=== PATIENT | female | born 1985 | race Caucasian/White ===

== ENCOUNTER 2017-03-28 17:03 | Emergency (ER) | payer MEDICAID ==
[~2017-03-28] VITALS: Wt 89.5 kg
[~2017-03-28 17:03] MED LIST: BACTDS PO; CEPH500C PO; IBUP800T25 PO; MAG-19 PO; OMEP20CA16 PO; ONDA4TAB35 PO
[2017-03-28] MEDS ORDERED: HYDROCODONE/APAP (5/325) TAB PO STA (18:10)
[2017-03-28] MEDS ORDERED: ONDANSETRON (ODT) 4 MG TAB ODT STA (18:10)
--- NOTE | 2017-03-28 19:08 | RADRPT ---
PROCEDURE: US Abdomen. CLINICAL INDICATION: Abdominal pain. TECHNIQUE: Multiple real-time images were acquired of the patient's right upper quadrant utilizing a high resolution transducer. The images were reviewed on a high-resolution PACS workstation. COMPARISON: 06/09/2015 FINDINGS: The liver demonstrates normal echogenicity and size and no focal lesions are seen. The liver measure s 16.2 cm in size. A gallstone is seen. There is no pericholecystic fluid. The gallbladder wall haroldo ures 1.8 mm in size. No intrahepatic biliary dilatation is seen. The common bile duct measures 1.9 mm in maximal dimension. The pancreas is not well visualized secondary to overlying bowel gas. No free fluid is identified. The right kidney is of normal size, and demonstrate normal echogenicity and morphology. The right k idney measures 9.2 cm. A 3 mm echogenic structure in the lower pole of the right kidney is seen whic h may represent a nonobstructing renal calculus. There are is no dilatation of the right collecting system. There are no perinephric fluid collections. There are no areas of increased echogenicity to suggest nephrolithiasis. IMPRESSION: 1. Cholelithiasis. 2. 3 mm echogenic structure in the right kidney which may represent a nonobstructive renal calculus . RPTAT: HPNM Physician Jamarcus Date Time Electronically viewed and signed by Physician Jamarcus on 03/28/2017 19:08 /
[2017-03-28] MEDS ORDERED: IBUP-1542 PO (19:25)
[2017-03-28] MEDS ORDERED: NITR-58 PO (19:25)
[2017-03-28] MEDS ORDERED: ONDA4TAB14 PO (19:26)
--- NOTE | 2017-03-28 22:23 | ERD ---
ER Documentation Chief Complaint Chief Complaint L. SIDED ABD PAIN W N/V/D HPI 1-year-old female presenting to the emergency department complaining of moderate epigastric and right upper quadrant abdominal pain for the past month. Patient states that she started having nausea less nonbloody vomiting diarrhea in the past 2 days. Patient denies any fevers. ROS All systems reviewed and are negative except as per history of present illness. Medications Home Meds Active Scripts Ondansetron (Ondansetron Odt) 4 Mg Tab.rapdis, 4 MG PO Q6H Y for NAUSEA AND/OR VOMITING, #20 TAB Prov:LOVE GARCIA PA-C 03/28/17 Ibuprofen* (Ibuprofen*) 600 Mg Tablet, 600 MG PO Q6H Y for PAIN, #30 TAB Prov:LOVE GARCIA PA-C 03/28/17 Nitrofurantoin Monohyd Macrocr* (Macrobid*) 100 Mg Capsr, 100 MG PO BID for 5 Days, CAP Prov:LOVE GARCIA PA-C 03/28/17 Ondansetron Hcl* (Zofran* ODT) 4 mg -ODT Tab.disper, 4 MG PO Q8 Y for NAUSEA AND /OR VOMITING, #30 TAB Prov:MARIAJOSE LAW NP 06/09/15 Omeprazole* (Omeprazole*) 20 Mg Capsule.dr, 20 MG PO DAILY, #30 CAP Prov:MARIAJOSE LAW NP 06/09/15 Magaldrate/Simethicone* (Mylanta*) 355 Ml Susp, 30 ML PO QID Y for GASTROINTESTINAL UPSET, #1 BOTTLE Prov:MARIAJOSE LAW NP 06/09/15 Ibuprofen* (Motrin*) 800 Mg Tab, 800 MG PO Q6 Y for PAIN, #30 TAB Prov:ISAC GARCIA 10/27/14 Sulfamethoxazole-Trimethoprim* (Bactrim* DS) 800-160 Mg Tab, 1 TAB PO BID for 7 Days, TAB Prov:ISAC GARCIA 10/27/14 Cephalexin* (Cephalexin*) 500 Mg Capsule, 500 MG PO QID for 7 Days, CAP Prov:ISAC GARCIA 10/27/14 Reported Medications [none] Unknown Strength No Conflict Check 06/09/15 Allergies Allergies: Coded Allergies: No Known Allergies (Verified Allergy, Unknown, 06/09/15) Uncoded Allergies: NKDA (Allergy, Unknown, 05/23/14) PMhx/Soc Medical and Surgical Hx: pt denies Medical Hx, pt denies Surgical Hx History of Surgery: No Anesthesia Reaction: No Hx Neurological Disorder: No Hx Respiratory Disorders: No Hx Cardiac Disorders: No Hx Psychiatric Problems: No Hx Miscellaneous Medical Probl: No Hx Alcohol Use: No Hx Substance Use: No Hx Tobacco Use: No Smoking Status: Never smoker Physical Exam Vitals Vital Signs Date Time Temp Pulse Resp B/P Pulse Ox O2 Delivery O2 Flow Rate FiO2 03/28/17 17:05 98.3 68 20 121/78 97 Physical Exam GENERAL: well-developed/well-nourished, in no apparent distress, non-toxic appearing HENT: NC/AT, moist mucous membranes EYES: Conjunctiva normal NECK: Supple, no lymphadenopathy PULM: CTA bilaterally, no rales, rhonchi, or wheezing heard CV: Normal S1S2, RRR, good capillary refill GI: Soft, non-distended, tender to palpation right upper quadrant Normal bowel sounds, no masses or organomegaly felt on exam No gross peritonitis, no bruits Negative Rovsing, negative Yousif, negative McBurney's point, Negative CVAT BACK: No masses EXT: No clubbing, cyanosis, or edema NEURO: Alert and Orientated SKIN: Intact, normal turgor PSYCH: Normal mood and mentation Result Diagram: 03/28/17181903/28/171819 Results 24 hrs Laboratory Tests Test 03/28/17 18:20 03/28/17 18:34 White Blood Count 9.310^3/ul Red Blood Count 4.2910^6/ul Hemoglobin 12.4g/dl Hematocrit 40.1% Mean Corpuscular Volume 93.5fl Mean Corpuscular Hemoglobin 28.9pg Mean Corpuscular Hemoglobin Concent 30.9g/dl Red Cell Distribution Width 13.7% Platelet Count 02029^3/UL Mean Platelet Volume 11.8fl Neutrophils % 64.5% Lymphocytes % 26.0% Monocytes % 6.5% Eosinophils % 2.5% Basophils % 0.3% Nucleated Red Blood Cells % 0.0/100WBC Neutrophils # 6.010^3/ul Lymphocytes # 2.410^3/ul Monocytes # 0.610^3/ul Eosinophils # 0.210^3/ul Basophils # 0.010^3/ul Nucleated Red Blood Cells # 0.010^3/ul Urine Color YELLOW Urine Clarity CLEAR Urine pH 7.0 Urine Specific [place] 1.012 Urine Ketones NEGATIVEmg/dL Urine Nitrite NEGATIVEmg/dL Urine Bilirubin NEGATIVEmg/dL Urine Urobilinogen NEGATIVEmg/dL Urine Leukocyte Esterase 3+Nate/ul Urine Microscopic RBC 2/HPF Urine Microscopic WBC 2/HPF Urine Squamous Epithelial Cells FEW/HPF Urine Mucus FEW/HPF Urine Hemoglobin NEGATIVEmg/dL Urine Glucose NEGATIVEmg/dL Urine Total Protein NEGATIVEmg/dl Sodium Level 142mmol/L Potassium Level 4.3mmol/L Chloride Level 105mmol/L Carbon Dioxide Level 27mmol/L Anion Gap 14 Blood Urea Nitrogen 7mg/dl Creatinine 0.67mg/dl Glucose Level 93mg/dl Calcium Level 9.3mg/dl Total Bilirubin 0.2mg/dl Direct Bilirubin 0.00mg/dl Indirect Bilirubin 0.2mg/dl Aspartate Amino Transf (AST/SGOT) 39IU/L Alanine Aminotransferase (ALT/SGPT) 46IU/L Alkaline Phosphatase 92IU/L Total Protein 7.7g/dl Albumin 4.2g/dl Globulin 3.50g/dl Albumin/Globulin Ratio 1.20 Lipase 51U/L Bedside Urine pH (LAB) 7.0 Bedside Urine Protein (LAB) Negative Bedside Urine Glucose (UA) Negative Bedside Urine Ketones (LAB) Negative Bedside Urine Blood Trace-intact Bedside Urine Nitrite (LAB) Negative Bedside Urine Leukocyte Esterase (L 2+ Current Medications Medications (Trade) Dose Ordered Sig/Magui Route PRN Reason Start Time Stop Time Status Last Admin Dose Admin Ondansetron HCl (Zofran Odt) 8 mg ONCE STAT ODT 03/28/17 18:10 03/28/17 18:11 DC 03/28/17 18:33 Acetaminophen/ Hydrocodone Bitart ([place] (5/325)) 2 tab ONCE STAT PO 03/28/17 18:10 03/28/17 18:11 DC 03/28/17 18:33 Procedures/MDM Is a 31-year-old female presenting to the emergency department complaining of epigastric right upper quadrant abdominal pain for the past month likely due to cholelithiasis. Patient also started having nausea vomiting diarrhea in the past 3 days which is likely due to bile gastritis. [I doubt patient has sepsis, choledocholithiasis, cholecystitis or cholangitis, pancreatitis or other acute abdomen conditions due to physical examination and diagnostic testing. Evidence of acute abdomen. Patient appears well and nontoxic appearing with stable vital signs. Normal labs. A bladder ultrasound stated 1. Cholelithiasis. 2. 3 mm echogenic structure in the right kidney which may represent a nonobstructive renal calculus. Diagnostic testing and instructions were given to patient. Pain control and antiemetic prescriptions were provided for outpatient self-care. Discussed with patient to follow-up with primary care for GI referral. Precautions were given to return to the ER for fever, intractable pain, increased vomiting, and other worsening signs and symptoms. Patient expressed agreement and understanding of this plan.] Departure Diagnosis: Primary Impression: Cholelithiasis Additional Impression: UTI (urinary tract infection) Condition: Stable Patient Instructions: Understanding Urinary Tract Infections (UTIs), Gallstones Additional Instructions: Visite a dewitt evan douglass para un EXAMEN.Regrese a estas instalaciones si no se mejora lisandro esperbamos o lisandro le dijimos. [place] toda la medicina devi y lisandro se le indic. Regrese a estas instalaciones si no se mejora lisandro esperbamos o lisandro le dijimos. LOVE GARCIA PA-C Mar 28, 2017 22:16
== END 2017-03-28 19:42 | disposition home or self-care (01) ==
LOC: FTE 17:03
DX: K80.20 Calculus of gallbladder without cholecystitis without obstruction (principal); N39.0 Urinary tract infection, site not specified
CPT/HCPCS: 76705; 80053; 81001; 83690; 85025; Z7502; Z7610; 81003